=== PATIENT | female | born 1985 | race Caucasian/White ===

== ENCOUNTER 2018-02-04 19:59 | Emergency (ER) | payer OTHER ==
[~2018-02-04] VITALS: Ht 170.2 cm; Wt 54.4 kg
== END 2018-02-04 21:58 | disposition left against medical advice (07) ==
LOC: ED 19:59
DX: Z53.21 Procedure and treatment not carried out due to patient leaving prior to being seen by health care provider (principal)

== ENCOUNTER 2018-10-23 08:33 | Emergency (ER) | payer OTHER ==
[~2018-10-23] VITALS: Ht 165.1 cm; Wt 62.6 kg
--- OUTSIDE RECORDS SUMMARY | 2018-10-23 08:36 | XMS ---
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 Details: LWBS CRITERIA MET - Group Notification CARE PROVIDERS There are no care providers on record at this time. Primo has no Care Guidelines for this patient. E.DYakelin VISIT COUNT (12 MO.) 2 [facility] TOTAL 2 NOTE: Visits indicate total known visits. ED/UCC VISIT TRACKING (12 MO.) [facility] COMPLAINT: - FLANK PAIN 02/04/2018 20:00 [facility] COMPLAINT: - LEFT FACIAL PAIN DIAGNOSES: - Headache - Procedure and treatment not carried out due to patient leaving prior to being seen by health care provider INPATIENT VISIT TRACKING (12 MO.) No inpatient visits to display in this time frame [id number]
[2018-10-23] MEDS ORDERED: CIPRO500 MG PO (12:45)
[2018-10-23] MEDS ORDERED: ONDANSETRON ODT8 MG PO (12:45)
[2018-10-23] MEDS ORDERED: NORCO 5-325 TA1 EACH PO (12:45)
[2018-10-24] MEDS ORDERED: PROMETHAZINE HC25 M1 PO (08:50)
== END 2018-10-23 13:36 | disposition home or self-care (01) ==
LOC: ED 08:33
DX: N13.2 Hydronephrosis with renal and ureteral calculous obstruction (principal); N39.0 Urinary tract infection, site not specified; F17.200 Nicotine dependence, unspecified, uncomplicated; Z91.030 Bee allergy status
CPT/HCPCS: 74176; 80053; 81001; 84703; 85025; 87077; 87088; 87186; 96361; 96365; 96375; 99284-25; J0696; J1885; J7030

== ENCOUNTER 2018-10-24 07:00 | Emergency (ER) | payer OTHER ==
[~2018-10-24] VITALS: Ht 165.1 cm; Wt 62.6 kg
[~2018-10-24 07:00] MED LIST: CIPRO500 MG PO; NORCO 5-325 TA1 EACH PO; ONDANSETRON ODT8 MG PO
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
[2018-10-24] MEDS ORDERED: PROMETHAZINE HC25 M1 PO (08:50)
== END 2018-10-24 09:26 | disposition home or self-care (01) ==
LOC: ED 07:00
DX: N20.1 Calculus of ureter (principal); F17.200 Nicotine dependence, unspecified, uncomplicated; Z91.030 Bee allergy status; Z79.899 Other long term (current) drug therapy
CPT/HCPCS: 81001; 85025; 96361; 96365; 96375; 99284-25; J0696; J1170; J1885; J2405; J2550; J7030

== ENCOUNTER 2020-05-12 10:45 | Emergency (ER) | payer OTHER ==
[~2020-05-12 10:45] MED LIST changes: +PROMETHAZINE HC25 M1 PO
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
[2020-05-12] MEDS ORDERED: NORCO 5-325 TA1 EACH PO (14:53)
[2020-05-12] MEDS ORDERED: KEPPRA500 MG PO (15:11)
[2020-05-13] MEDS ORDERED: ONDANSETRON ODT8 MG PO (16:09)
== END 2020-05-12 15:43 | disposition home or self-care (01) ==
LOC: ED 10:45
DX: S81.811A Laceration without foreign body, right lower leg, initial encounter (principal); S20.219A Contusion of unspecified front wall of thorax, initial encounter; F17.200 Nicotine dependence, unspecified, uncomplicated; Z91.030 Bee allergy status; Z79.899 Other long term (current) drug therapy; V89.2XXA Person injured in unspecified motor-vehicle accident, traffic, initial encounter
CPT/HCPCS: 12001; 70450; 71045; 71260; 72125; 73590; 74177; 80053; 81001; 82150; 82550; 83690; 84703; 85025; 86850; 86900; 86901; 90471; 90715; 99284-25; A9270; G0480; J0690; J1170; J2405; J7030; Q9967

== ENCOUNTER 2020-05-13 15:07 | Emergency (ER) | payer OTHER ==
[~2020-05-13] VITALS: Ht 165.1 cm; Wt 62.6 kg
[~2020-05-13 15:07] MED LIST changes: +KEPPRA500 MG PO
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
[2020-05-13] MEDS ORDERED: ONDANSETRON ODT8 MG PO (16:09)
== END 2020-05-13 16:14 | disposition home or self-care (01) ==
LOC: ED 15:07
DX: R11.2 Nausea with vomiting, unspecified (principal); F17.200 Nicotine dependence, unspecified, uncomplicated; Z91.030 Bee allergy status
CPT/HCPCS: 99283

== ENCOUNTER 2020-06-08 15:19 | Emergency (ER) | payer OTHER ==
[~2020-06-08] VITALS: Ht 165.1 cm; Wt 62.6 kg
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
[2020-06-08] MEDS ORDERED: KEPPRA1000 MG PO (16:22)
== END 2020-06-08 16:28 | disposition home or self-care (01) ==
LOC: ED 15:19
DX: G40.909 Epilepsy, unspecified, not intractable, without status epilepticus (principal); S16.1XXA Strain of muscle, fascia and tendon at neck level, initial encounter; V43.52XA Car driver injured in collision with other type car in traffic accident, initial encounter; F17.200 Nicotine dependence, unspecified, uncomplicated; Z91.030 Bee allergy status; Z79.899 Other long term (current) drug therapy
CPT/HCPCS: 72040; 99284-25